=== PATIENT | male | born 2000 | race Caucasian/White ===

== ENCOUNTER 2021-02-10 18:38 | Emergency (ER) | payer MEDICAID, SELFPAY ==
[2021-02-10 18:50] VITALS: BP 153/84; PULSE 101; RESP 18; TEMP 36.8; O2SAT 98; BMI 43.3
[2021-02-10 20:39] VITALS: BP 163/90; PULSE 96; RESP 18; O2SAT 99
[2021-02-10 21:05] VITALS: BP 137/78; PULSE 87; RESP 24; O2SAT 99
--- NOTE | 2021-02-10 21:18 | XR_ITS ---
WS: [id number] Exam: XR chest 1V portable [id number] Date/Time of Exam: 02/10/2021 9:18 PM Reason For Exam: cp Comparison 12/16/2017. Findings: The lungs are clear and fully expanded. Costophrenic angles are sharp. No infiltrates. Bronchovascula r relief appears normal. Cardiac silhouette is unremarkable. Bony elements are intact. XR/XR chest 1V portable [id number] IMPRESSION: Unremarkable chest radiograph.
[2021-02-10 21:30] LABS: Basophils # 0.1 10^3/uL (0.0-0.1); Basophils % 0.7 %; Eosinophils # 0.5 10^3/uL (0.0-0.8); Hematocrit 42.5 % (42.0-52.0); Lymphocytes # 3.2 10^3/uL (1.5-6.5); Lymphocytes % 30.9 %; Mean Corpuscular HGB Conc 32.9 g/dL (30.0-36.0); Mean Corpuscular Hemoglobin 27.1 pg (28.0-34.0); Mean Corpuscular Volume 82.2 fL (80-94); Mean Platelet Volume 9.2 fL (7.4-10.4); Monocytes # 0.7 10^3/uL (0.2-0.9); Monocytes % 6.5 %; Neutrophils # 5.78 10^3/uL (1.8-8.0); Neutrophils % 56.4 %; Nucleated Red Blood Cells % 0 %; Platelet Count 375 10^3/cmm (130-400); Red Blood Count 5.17 10^6/uL (4.1-5.3); Red Cell Distribution Width 13.2 % (12.1-15.1); White Blood Count 10.2 10^3/uL (4.5-13.0)
[2021-02-10 21:44] LABS: Anion Gap 14.8 (5-19); Aspartate Amino Transferase 22 U/L (0-40); Blood Urea Nitrogen 9 mg/dL (6-20); Carbon Dioxide 27 mmol/L (22-29); Chloride 102 mmol/L (98-107); Glomerular Filtration Rate 145.3 mL/min (90-130); Glucose 87 mg/dL (65-115); Osmolality Calculated 288 mOsm/kg (285-295); Potassium 3.8 mmol/L (3.5-5.1); Sodium 140 mmol/L (136-145); Total Bilirubin 0.2 mg/dL (0.15-1.2); Total Protein 7.1 g/dL (6.6-8.7)
[2021-02-10] MEDS: ketorolac 30 mg/mL INJ IVP (21:49)
[2021-02-10 21:55] VITALS: BP 143/76; PULSE 83; RESP 16; O2SAT 98
[2021-02-10 22:12] LABS: Alanine Aminotransferase 36 U/L (0-41); Albumin Level 4.3 g/dL (3.5-5.2); Alkaline Phosphatase 74 IU/L (40-130); Globulin 2.8 g/dL (1.3-4.6)
[2021-02-10 22:13] LABS: Troponin T (5th) Once 6 ng/L (0-15)
[2021-02-10 22:32] LABS: D Dimer 0.36 ug/mIFEU (0-0.59)
[2021-02-10] MEDS: dexamethasone 10 mg/mL INJ IVP (23:09)
--- NOTE | 2021-02-10 23:21 | ECG_ITS ---
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
[2021-02-10 23:23] VITALS: BP 148/116; PULSE 92; RESP 18; O2SAT 98
--- NOTE | 2021-02-11 01:51 | ED_ITS ---
HPI - Chest Pain General: Chief Complaint: Chest Pain Stated Complaint: chest pain, cough Time Seen by Provider: 02/10/21 20:44 History of Present Illness: HPI narrative: 20-year-old male has had a cough for 3 days. Currently he started to have sharp chest pains, worsened with his cough or deep breathing. No fever that he knows of. No sputum production. No known sick contacts MD complaint: chest pain Onset (ago): day(s) Timing of current episode: episodic Prior episodes: No Onset: during rest Pain location: left chest and right chest Pain radiation: none Severity: moderate Quality: sharp Relieving factors: nothing Exacerbating factors: other (Cough) Context: recent illness Associated symptoms: Deny abdominal pain, dyspnea, fever(s), leg edema, nausea, palpitations or vomiting Review of Systems Const: Denies: fever(s) Eyes: Denies: change in vision ENMT: Denies: throat pain or odynophagia Card: Reports: chest pain; Denies: palpitations, irregular heart rhythm or swelling of feet/ankles Resp: Denies: dyspnea GI: Denies: abdominal pain, nausea or vomiting : Denies: dysuria Physical Exam Const: GENERAL APPEARANCE: well developed ORIENTATION/CONSCIOUSNESS: Yes oriented to person, Yes oriented to place and Yes oriented to time HENMT: COMMON NORMALS: normocephalic, external ears normal and Normal external nose present HEAD & SCALP: normocephalic FACE & SINUS: normal facial exam NOSE: Normal external nose present and No nasal discharge present EXTERNAL EAR: Yes external ears normal Eye: COMMON NORMALS: Equal, round and reactive pupils present, EOMs intact bilaterally and conjunctivae normal EYELID: eyelids normal CONJUNCTIVA: Yes conjunctivae normal PUPIL: Yes Equal, round and reactive pupils present Neck/C-Spine: GENERAL: No tracheal deviation Chest: COMMONS NORMALS: normal inspection of the chest CHEST: Yes tenderness Resp: COMMON NORMALS: clear to auscultation bilaterally EFFORT & INSPECTION: No tachypneic, No respiratory distress, No retractions, No uses accessory muscles and No tracheal deviation AUSCULTATION: clear to auscultation bilaterally, no rhonchi, no wheezes and lung sounds not diminished Cardio: COMMON NORMALS: regular rate and regular rhythm RATE: regular rate RHYTHM: regular rhythm HEART SOUNDS: no murmurs PERIPHERAL PULSES: ra dial pulses present GI: INSPECTION: No abdominal distension AUSCULTATION: No Hyperactive bowel sounds present and No Hypoactive bowel sounds present PALPATION: No Guarding due to palpation present (GI) and No Rigid due to palpation PERCUSSION: no dullness to percussion and no tympanic to percussion Neuro: SENSORIUM/ORIENTATION: Yes oriented to person, Yes oriented to place and Yes oriented to time Psych: COMMON NORMALS: mental status grossly normal Skin: COMMON NORMALS: no rashes or lesions noted GENERAL SKIN EXAM: no rashes or lesions noted Course Vital Signs: Vital signs: Vital Signs Temperature 98.3 F 02/10/21 18:50 Pulse Rate 92 02/10/21 23:23 Respiratory Rate 18 02/10/21 23:23 Blood Pressure 148/116 02/10/21 23:23 Pulse Oximetry 98 02/10/21 23:23 MDM - Chest Pain MDM Narrative: Medical decision making narrative: He is swabbed for Covid. Laboratory is normal. Chest x-ray is normal. Single troponin is normal. D- dimer is negative Lab Data: Labs: Lab Results 02/10/21 02/10/21 02/10/21 Range/Units 20:53 20:53 20:53 WBC 10.2 (4.5-13.0) 10^3/ uL RBC 5.17 (4.1-5.3) 10^6/u L Hgb 14.0 (11.7-16.6) g/dL Hct 42.5 (42.0-52.0) % MCV 82.2 (80-94) fL MCH 27.1 L (28.0-34.0) pg MCHC 32.9 (30.0-36.0) g/dL RDW 13.2 (12.1-15.1) % Plt Count 375 (130-400) 10^3/c mm MPV 9.2 (7.4-10.4) fL Neut % (Auto) 56.4 % Lymph % (Auto) 30.9 % [place] % (Auto) 6.5 % Eos % (Auto) 5.0 % Baso % (Auto) 0.7 % Neut # (Auto) 5.78 (1.8-8.0) 10^3/u L Lymph # (Auto) 3.2 (1.5-6.5) 10^3/u L [place] # (Auto) 0.7 (0.2-0.9) 10^3/u L Eos # (Auto) 0.5 (0.0-0.8) 10^3/u L Baso # (Auto) 0.1 (0.0-0.1) 10^3/u L Nucleated RBC % (a uto) 0 % Nucleated RBCs # 0.0 /100WBC D-Dimer 0.36 (0-0.59) ug/mIFE U Sodium 140 (136-145) mmol/L Potassium 3.8 (3.5-5.1) mmol/L Chloride 102 (98-107) mmol/L Carbon Dioxide 27 (22-29) mmol/L Anion Gap 14.8 (5-19) BUN 9 (6-20) mg/dL Creatinine 0.7 (0.7-1.2) mg/dL GFR Calculation 145.3 H (90-130) mL/min Glucose 87 (65-115) mg/dL Calculated Osmolal ity 288 (285-295) mOsm/k g Calcium 9.0 (8.5-10.5) mg/dL Total Bilirubin 0.2 (0.15-1.2) mg/dL AST 22 (0-40) U/L ALT 36 (0-41) U/L Alkaline Phosphata se 74 (40-130) IU/L Troponin T Gen 5 n g/L (0-15) ng/L Total Protein 7.1 (6.6-8.7) g/dL Albumin 4.3 (3.5-5.2) g/dL Globulin 2.8 (1.3-4.6) g/dL 02/10/ Range/Units 20:53 WBC (4.5-13.0) 10^3/ uL RBC (4.1-5.3) 10^6/u L Hgb (11.7-16.6) g/dL Hct (42.0-52.0) % MCV (80-94) fL MCH (28.0-34.0) pg MCHC (30.0-36.0) g/dL RDW (12.1-15.1) % Plt Count (130-400) 10^3/c mm MPV (7.4-10.4) fL Neut % (Auto) % Lymph % (Auto) % [place] % (Auto) % Eos % (Auto) % Baso % (Auto) % Neut # (Auto) (1.8-8.0) 10^3/u L Lymph # (Auto) (1.5-6.5) 10^3/u L [place] # (Auto) (0.2-0.9) 10^3/u L Eos # (Auto) (0.0-0.8) 10^3/u L Baso # (Auto) (0.0-0.1) 10^3/u L Nucleated RBC % (a uto) % Nucleated RBCs # /100WBC D-Dimer (0-0.59) ug/mIFE U Sodium (136-145) mmol/L Potassium (3.5-5.1) mmol/L Chloride (98-107) mmol/L Carbon Dioxide (22-29) mmol/L Anion Gap (5-19) BUN (6-20) mg/dL Creatinine (0.7-1.2) mg/dL GFR Calculation (90-130) mL/min Glucose (65-115) mg/dL Calculated Osmolal ity (285-295) mOsm/k g Calcium (8.5-10.5) mg/dL Total Bilirubin (0.15-1.2) mg/dL AST (0-40) U/L ALT (0-41) U/L Alkaline Phosphata se (40-130) IU/L Troponin T Gen 5 n g/L 6 (0-15) ng/L Total Protein (6.6-8.7) g/dL Albumin (3.5-5.2) g/dL Globulin (1.3-4.6) g/dL Discharge Plan Discharge Patient Disposition: Home Clinical Impression: Bronchitis Condition: Stable Prescriptions: New Zithromax 250 mg tablet See Rx Instructions .ROUTE .COMPLEX Qty: 6 RF: 0 albuterol sulfate 90 mcg/actuation HFA aerosol inhaler 2 inh inhalation Q4H PRN (Reason: shortness of breath or wheezing) Qty: 6.7 RF: 1 ketorolac 10 mg tablet 10 mg PO TID PRN (Reason: pain) Qty: 10 RF: 0 Discharge Orders: Discharge ED (Routine); Ordered 02/10/21 Ordered By: Tyler Ordonez Referrals: Keo Sparks MD [Primary Care Provider] - Patient Instructions: Acute Bronchitis (ED) Activity Restrictions/Additional Instructions: You should quarantine at home until your COVID-19 test comes back negative. Return for fever greater than 100 despite 2-3 doses of antibiotics, worsening shortness of breath, worsening pain despite treatment, other concerning symptoms. Stand Alone Forms: Work/School Release Coding Level of Care Code ED [employer] for Chg Fwd Exam Comprehensive
== END 2021-02-10 23:23 | disposition home or self-care (01) ==
PROVIDERS: Emergency Provider Emergency Medicine; PCP Family Medicine
DX: J40 Bronchitis, not specified as acute or chronic (principal)
CPT/HCPCS: 71045; 80053; 84484; 85025; 85378; 93005; 96374; 96375; 99284; J1100; J1885

== ENCOUNTER 2021-12-11 06:00 | Outpatient (RCR) | payer MEDICAID, SELFPAY | END 2021-12-16 23:59 | disposition home or self-care (01) | LOC: SPT 06:00 | PROVIDERS: PCP Family Medicine; Referring Provider Nurse Practitioner Family; Visit Provider Nurse Practitioner Family | DX: M54.50 Low back pain, unspecified (principal) | CPT/HCPCS: 97161 ==

== ENCOUNTER 2025-02-10 18:01 | Emergency (ER) | payer BC, SELFPAY ==
--- NOTE | 2025-02-10 18:02 | ECG_ITS ---
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
[2025-02-10 18:07] VITALS: BP 180/119; PULSE 109; RESP 22; TEMP 36.7; O2SAT 98; BMI 58.5
[2025-02-10 18:17] VITALS: BP 207/122; PULSE 107; RESP 26; O2SAT 99
--- NOTE | 2025-02-10 18:28 | ED_ITS ---
HPI - Chest Pain 2 General: Chief Complaint: Chest Pain Stated Complaint: Chest Pain,Sob Time Seen by Provider: 02/10/25 18:20 History of Present Illness: Leona, a patient with a history of pleurisy and rib contusions diagnosed in 2016, presents to the ER with acute chest pain that started about 1.5 hours ago. The patient reports experiencing chest pain throughout his life, but this episode began more centrally in his chest around 5:10 PM. He took nitroglycerin tablets as prescribed, taking three doses over a short period when the pain persisted. After the second dose, he went to the bathroom and noticed he had spit up some blood, which he reports happens now and then. The chest pain continued to worsen, becoming severe around 5:50 PM, making it difficult for him to stand and causing shortness of breath. The patient denies associated sweating or recent fevers. He mentions that in the past two weeks, he has had three other episodes of chest pain that were relieved by nitroglycerin, but this current episode is more severe and has not responded to medication. The pain is reportedly worse when taking deep breaths. The patient is currently taking nitroglycerin tablets for chest pain management. He has an upcoming appointment in March, which he believes is for a scope requested by his doctor, possibly to evaluate his heart or stomach. Related Data Previous Rx's ?Medication ?Instructions ?Recorded albuterol sulfate 90 mcg/actuation 2 inh inhalation Q4 H PRN shortness 02/10/21 aerosol inhaler of breath or wheezing #6.7 g vandana azithromycin 250 mg tablet See Rx Instructions PO .COM PLEX #6 02/10/21 (Zithromax) tabs ketorolac 10 mg tablet 10 mg PO TID PRN pain #10 ta bs 02/10/21 Allergies Allergy/AdvReac Type Severity Reaction Status Date / Time shrimp Allergy ALGY-Anaphy Verified 02/10/25 18:11 laxis Review of Systems 2 General: Reports: 10 or more systems reviewed and unremarkable except in HPI and below Physical Exam 2 Const: COMMON NORMALS: no acute distress, patient oriented x3, healthy appearing, alert and well nourished HENMT: COMMON NORMALS: normocephalic HEAD & SCALP: normocephalic Eye: COMMON NORMALS: EOMs intact bilaterally Neck/C-Spine: COMMON NORMALS: full ROM and supple Resp: COMMON NORMALS: normal respiratory effort, No retractions and clear to auscultation bilaterally AUSCULTATION: clear to auscultation bilaterally Cardio: COMMON NORMALS: regular rate, regular rhythm, No gallops present (Cardio) and No murmurs present (Cardio) RATE: regular rate RHYTHM: r egular rhythm GI: COMMON NORMALS: Soft to palpation and non-tender PALPATION: Yes Soft to palpation Extremity: GENERAL: Yes normal exam except as noted Neuro: COMMON NORMALS: patient oriented x3 SENSORIUM/ORIENTATION: Yes alert Skin: COMMON NORMALS: no rashes or lesions noted GENERAL SKIN EXAM: no rashes or lesions noted Course 2 Vital Signs: Vital signs: Vital Signs Temperature 98.0 F 02/10/25 18:07 Pulse Rate 87 02/10/25 22:13 Respiratory Rate 17 02/10/25 22:13 Blood Pressure 167/96 02/10/25 22:13 Pulse Oximetry 91 02/10/25 22:13 Oxygen Delivery Me thod Room Air 02/10/25 22:13 MDM - Chest Pain Medical Decision Making 24-year-old male presents the emergency department for evaluation of chest pain. Given the patient's severe range blood pressures and chest pain he is concerning for hypertensive emergency. As the patient is tachycardic plan to give the patient labetalol in order to get a 20% reduction in blood pressure. He is not currently on any blood pressure medication. He did take 3 nitros prior to coming into the emergency department without improvement of his chest pain. However, the patient has had 3 other episodes of chest pain over the last 3 weeks that did resolve with nitro. 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 Plan to rule out ACS, GI sources of chest pain, pulmonary sources of chest pain, and muscle skeletal sources of chest pain. Initial EKG showed sinus tachycardia without any ST segment elevation. Treatment with labetalol demonstrated improvement of his blood pressure and tachycardia. Initial troponin was negative. Patient was given Toradol and a GI cocktail and a D-dimer was ordered. Patient has a normal D-dimer patient's chest x-ray was normal. His pain did improve some with tramadol and GI cocktail. However, his pain did not completely resolve. Provided the patient with reassurance that it is not his heart or his lungs causing his symptoms. It is most likely muscle skeletal in nature. With his past medical history of pleurisy this is the most likely diagnosis. Differential Diagnosis Likely acute massive pulmonary embolism, acute respiratory failure, acute myocardial infarction and cardiac arrest Lab Data 02/10/25 18:36 02/10/25 19:05 Radiology Impressions Chest X-Ray 02/10/25 18:29 IMPRESSION: 1. Pulmonary hypoinflation with mild compressive changes throughout the lungs. 2. No focal consolidation seen. Laboratory Results WBC 7.94 10^3/uL (3.29-11.43) 02/10/25 18:36 RBC 5.04 10^6/uL (3.85-5.65) 02/10/25 18:36 Hgb 13.30 g/dL (11.27-16.99) 02/10/25 18:36 Hct 40.2 % (37-53) 02/10/25 18:36 MCV 79.8 fl (82-101) L 02/10/25 18:36 MCH 26.4 pg (27-33) L 02/10/25 18:36 MCHC 33.1 g/dL (30-55) 02/10/25 18:36 RDW 14.7 % (12.1-15.1) 02/10/25 18:36 Plt Count 362 10^3/cmm (157-399) 02/10/25 18:36 MPV 9.8 fL (7.4-10.4) 02/10/25 18:36 Neut % (Auto) 60.5 % 02/10/25 18:36 Lymph % (Auto) 27.5 % 02/10/25 18:36 [place] % (Auto) 8.1 % 02/10/25 18:36 Eos % (Auto) 2.8 % 02/10/25 18:36 Baso % (Auto) 0.8 % 02/10/25 18:36 Neut # (Auto) 4.82 10^3/uL (1.8-7.7) 02/10/25 18:36 Lymph # (Auto) 2.2 10^3/uL (0.8-4.8) 02/10/25 18:36 [place] # (Auto) 0.6 10^3/uL (0.2-0.9) 02/10/25 18:36 Eos # (Auto) 0.2 10^3/uL (0.0-0.8) 02/10/25 18:36 Baso # (Auto) 0.1 10^3/uL (0.0-0.1) 02/10/25 18:36 Nucleated RBC % (auto) 0 % 02/10/25 18:36 Nucleated RBCs # 0.0 /100WBC 02/10/25 18:36 D-Dimer <= 0.27 ug/mLFEU (0-0.59) 02/10/25 19:51 Sodium 139 mmol/L (136-145) 02/10/25 19:05 Potassium 3.7 mmol/L (3.5-5.1) 02/10/25 19:05 Chloride 102 mmol/L (98-107) 02/10/25 19:05 Carbon Dioxide 22 mmol/L (22-29) 02/10/25 19:05 Anion Gap 18.7 (5-19) 02/10/25 19:05 BUN 10 mg/dL (6-20) 02/10/25 19:05 Creatinine 1.0 mg/dL (0.7-1.2) 02/10/25 19:05 GFR Calculation 92.6 mL/min (90-130) 02/10/25 19:05 Glucose 89 mg/dL (65-115) 02/10/25 19:05 Calculated Osmolality 287 mOsm/kg (285-295) 02/10/25 19:05 Calcium 9.7 mg/dL (8.5-10.5) 02/10/25 19:05 Total Bilirubin 0.3 mg/dL (0.15-1.2) 02/10/25 19:05 AST 92 U/L (0-40) H 02/10/25 19:05 ALT 219 U/L (0-41) H 02/10/25 19:05 Alkaline Phosphatase 68 U/L (40-130) 02/10/25 19:05 Troponin T Baseline < 6 ng/L (0-15) 02/10/25 19:05 Troponin T 120 Minute 6.00 ng/L (0-15) 02/10/25 20:43 Delta Troponin T 0.64970 ABS# (0-10) 02/10/25 20:43 NT-Pro-B Natriuret Pep < 36 pg/mL (0-125) 02/10/25 19:05 Total Protein 7.0 g/dL (6.6-8.7) 02/10/25 19:05 Albumin 4.3 g/dL (3.5-5.2) 02/10/25 19:05 Globulin 2.7 g/dL (1.3-4.6) 02/10/25 19:05 All radiology interpretation(s) finalized by discharge ED provider radiology interpretation(s): IMPRESSION: 1. Pulmonary hypoinflation with mild compressive changes throughout the lungs. 2. No focal consolidation seen. Discharge Plan Discharge Patient Disposition: Home Clinical Impression: Chest pain Qualifiers: Chest pain type: pleurodynia Qualified Code(s): R07.81 - Pleurodynia Condition: Stable Prescriptions: No Action Zithromax 250 mg tablet See Rx Instructions .ROUTE .COMPLEX Qty: 6 0RF Rx Instructions: take 500 mg today (day 1), then 250 mg for 4 days (days 2-5) albuterol sulfate 90 mcg/actuation HFA aerosol inhaler 2 inh inhalation Q4H PRN (Reason: shortness of breath or wheezing) Qty: 6.7 1RF ketorolac 10 mg tablet 10 mg PO TID PRN (Reason: pain) Qty: 10 0RF Discharge Orders: Discharge ED (Routine); Ordered 02/10/25 Ordered By: Carmine Law Referrals: Keo Sparks MD [Primary Care Provider] - (Follow-up with your primary care physician in 1 to 2 weeks. Discussed hypertension and pleurisy.) Discharge Diet: Advance as tolerated Discharge Activity: Increase activity as tolerated Patient Instructions: Opioid Safety, Pain Management Activity Restrictions/Additional Instructions: Please return to the emergency department with any new or worsening symptoms. Please follow with your primary care physician for any persistent symptoms. Print Language: Honduran Coding Level of Care Code ED Site Physician for Kleber Mancera
--- NOTE | 2025-02-10 18:29 | XRR_ITS ---
PROCEDURE INFORMATION: Exam: XR Chest Exam date and time: 02/10/2025 6:31 PM Age: 24 years old Clinical indication: Pain; Shortness of breath; Chest pressure; Additional info: Chest pain TECHNIQUE: Imaging protocol: Radiologic exam of the chest. Views: 1 view. COMPARISON: CR XR chest 1V portable [id number] 02/10/2021 10:06 PM FINDINGS: Lungs: There is pulmonary hypoinflation with mild compressive changes throughout the lungs. No focal consolidation seen. Pleural spaces: No significant pleural effusion. No pneumothorax. Heart/Mediastinum: Within normal limits. Bones/joints: Intact. Other findings: None. XR/XR chest 1V portable [id number] IMPRESSION: 1. Pulmonary hypoinflation with mild compressive changes throughout the lungs. 2. No focal consolidation seen.
[2025-02-10 18:40] LABS: Basophils # 0.1 10^3/uL (0.0-0.1); Basophils % 0.8 %; Eosinophils # 0.2 10^3/uL (0.0-0.8); Eosinophils % 2.8 %; Hematocrit 40.2 % (37-53); Lymphocytes # 2.2 10^3/uL (0.8-4.8); Lymphocytes % 27.5 %; Mean Corpuscular HGB Conc 33.1 g/dL (30-55); Mean Corpuscular Hemoglobin 26.4 pg (27-33); Mean Corpuscular Volume 79.8 fl (82-101); Mean Platelet Volume 9.8 fL (7.4-10.4); Monocytes # 0.6 10^3/uL (0.2-0.9); Monocytes % 8.1 %; Neutrophils # 4.82 10^3/uL (1.8-7.7); Neutrophils % 60.5 %; Nucleated Red Blood Cells % 0 %; Platelet Count 362 10^3/cmm (157-399); Red Blood Count 5.04 10^6/uL (3.85-5.65); Red Cell Distribution Width 14.7 % (12.1-15.1); White Blood Count 7.94 10^3/uL (3.29-11.43)
[2025-02-10] MEDS: labetalol 5 mg/mL SDV 20mL 20 MG IVP (19:25)
[2025-02-10 19:28] VITALS: BP 160/95; PULSE 92; RESP 12; O2SAT 98
[2025-02-10 19:31] LABS: Troponin(5th) Baseline < 6 ng/L (0-15)
[2025-02-10 19:39] LABS: Alanine Aminotransferase 219 U/L (0-41); Albumin Level 4.3 g/dL (3.5-5.2); Alkaline Phosphatase 68 U/L (40-130); Anion Gap 18.7 (5-19); Aspartate Amino Transferase 92 U/L (0-40); Blood Urea Nitrogen 10 mg/dL (6-20); Calcium 9.7 mg/dL (8.5-10.5); Carbon Dioxide 22 mmol/L (22-29); Chloride 102 mmol/L (98-107); Creatinine Clr Calc Pharmacy 180.2015; Globulin 2.7 g/dL (1.3-4.6); Glomerular Filtration Rate 92.6 mL/min (90-130); Glucose 89 mg/dL (65-115); NT Pro B Type Natriuretic Pept < 36 pg/mL (0-125); Osmolality Calculated 287 mOsm/kg (285-295); Potassium 3.7 mmol/L (3.5-5.1); Sodium 139 mmol/L (136-145); Total Bilirubin 0.3 mg/dL (0.15-1.2)
[2025-02-10 20:09] LABS: D Dimer <= 0.27 ug/mLFEU (0-0.59)
[2025-02-10] MEDS: lidocaine 2% viscous 15 ML, aluminum-mag hydrox-simethicon 30 ML, sucralfate oral liq 1 GM PO (20:22)
[2025-02-10] MEDS: ketorolac 30 mg/mL INJ 15 MG IVP (20:23)
--- NOTE | 2025-02-10 20:30 | ECG_ITS ---
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
[2025-02-10 20:52] VITALS: BP 171/95; PULSE 82; RESP 18; O2SAT 96
[2025-02-10 21:07] LABS: Troponin 5 2HR Delta 0.00001 ABS# (0-10)
[2025-02-10 22:13] VITALS: BP 167/96; PULSE 87; RESP 17; O2SAT 91
[2025-02-10 22:57] VITALS: BP 152/72; PULSE 88; RESP 20; O2SAT 98
== END 2025-02-10 22:58 | disposition home or self-care (01) ==
PROVIDERS: Emergency Provider General Practice; PCP Family Medicine
DX: R07.81 Pleurodynia (principal)
CPT/HCPCS: 36415; 71045; 80053; 83880; 84484; 85025; 85378; 93005; 96374; 96375; 99285; J1885; J3490; J9999